=== PATIENT | male | born 1985 | race American Indian/Alaskan Native ===

== ENCOUNTER 2017-11-29 12:54 | Inpatient (IN) | payer OTHER ==
--- NOTE | 2017-11-29 15:39 | Emergency Department Report ---
Blank Doc - Documentation Documentation: Patient presents to the emergency department for chest pain 2 days. Patient states the pain is worse when he leans forward or Flat. He states the pain is located on left side of his chest and radiates to his left shoulder. Patient will be moved to the main ED for further evaluation and workup.
--- NOTE | 2017-11-29 15:47 | XRay Report ---
FINAL REPORT PROCEDURE: XR CHEST ROUTINE 2V TECHNIQUE: PA and lateral chest radiographs were obtained. CPT 30938 HISTORY: sob/cr with deep breath COMPARISON: No prior studies are available for comparison. FINDINGS: Heart: Normal size. Mediastinum/Vessels: Normal. Lungs/Pleural space: Clear. Bony thorax: No acute osseous abnormality. Other: IMPRESSION: Negative examination.
[2017-11-29 17:07] LABS: Basophils % (Auto) 0.3 % (0.0-1.8); Eosinophils # (Auto) 0.1 K/mm3 (0.0-0.4); Eosinophils % (Auto) 1.1 % (0.0-4.3); Hematocrit 37.6 % (35.5-45.6); Lymphocytes # (Auto) 1.3 K/mm3 (1.2-5.4); Lymphocytes % (Auto) 18.9 % (13.4-35.0); Mean Corpuscular HGB Conc 32 % (32-34); Mean Corpuscular Hemoglobin 30 pg (28-32); Mean Corpuscular Volume 93 fl (84-94); Monocytes # (Auto) 0.7 K/mm3 (0.0-0.8); Monocytes % (Auto) 9.5 % (0.0-7.3); Platelet Count 331 K/mm3 (140-440); Red Blood Count 4.04 M/mm3 (3.65-5.03); Red Cell Distribution Width 14.9 % (13.2-15.2)
[2017-11-29 17:09] LABS: INR 0.93 (0.87-1.13)
[2017-11-29 17:10] LABS: Partial Thromboplastin Time 38.3 Sec. (24.2-36.6)
[2017-11-29 17:20] LABS: Alanine Aminotransferase 19 units/L (7-56); Albumin 4.1 g/dL (3.9-5); BUN/Creatinine Ratio 21; Blood Urea Nitrogen 15 mg/dL (9-20); Calcium 9.4 mg/dL (8.4-10.2); Hemolysis Index 3
--- NOTE | 2017-11-29 18:11 | Emergency Department Report ---
ED Chest Pain HPI - General Chief Complaint: Chest Pain Stated Complaint: CHEST PAIN/SOB Time Seen by Provider: 11/29/17 15:06 Source: patient Mode of arrival: Ambulatory Limitations: No Limitations - History of Present Illness Initial Comments: This is a pleasant 32 year-old male who admits to occasional marijuana use who reports that he woke up this morning with shortness of breath and left-sided chest pain. He admits that over the past few days he began to have these symptoms and they have worsened. When asked if he is exerting himself physically he states that he did help somebody move yesterday but the symptoms began before that. He states that it hurts to take a deep breath and positional changes also make the pain worse. He does not have any significant past medical history and is not on any current prescription medications. He denies any alcohol use or nicotine use. MD Complaint: chest pain -: Gradual, days(s) (2) Onset: during rest Pain Location: substernal, left chest Pain Radiation: none Severity: moderate Severity scale (0 -10): 6 Quality: tightness, sharp Consistency: constant Worsens With: inspiration, movement re: denies: nausea, vomting, diaphoresis, dyspnea Other Symptoms: denies: cough, fever Treatments Prior to Arrival: none - Related Data Allergies Allergy/AdvReac Type Severity Reaction Status Date / Time clindamycin Allergy Rash Verified 11/29/17 13:20 Heart Score - HEART Score History: Slightly suspicious EKG: Non-specific Age: < 45 Risk factors: 1-2 risk factors Troponin: < normal limit HEART Score: 2 ED Review of Systems ROS: Stated complaint: CHEST PAIN/SOB Other details as noted in HPI Comment: All other systems reviewed and negative Constitutional: see HPI Eyes: as per HPI ENT: as per HPI Respiratory: see HPI Cardiovascular: as per HPI Endocrine: see HPI Gastrointestinal: as per HPI Genitourinary: as per HPI Musculoskeletal: as per HPI Skin: as per HPI Neurological: as per HPI Psychiatric: as per HPI Hematological/Lymphatic: as per HPI ED Past Medical Hx - Past Medical History Previous Medical History?: No - Surgical History Past Surgical History?: No - Social History Smoking Status: Never Smoker Substance Use Type: Marijuana ED Physical Exam - General Limitations: No Limitations General appearance: in distress (mild) - Head Head exam: Present: atraumatic, normocephalic - Eye Eye exam: Present: normal appearance, PERRL, EOMI - ENT ENT exam: Present: normal exam - Neck Neck exam: Present: normal inspection - Respiratory Respiratory exam: Present: normal lung sounds bilaterally, chest wall tenderness. Absent: respiratory distress, wheezes, rales, rhonchi - Cardiovascular Cardiovascular Exam: Present: regular rate, normal rhythm, normal heart sounds - GI/Abdominal GI/Abdominal exam: Present: soft, normal bowel sounds. Absent: distended, tenderness, guarding, rebound - Extremities Exam Extremities exam: Present: normal inspection, full ROM, normal capillary refill - Back Exam Back exam: Present: normal inspection, full ROM - Neurological Exam Neurological exam: Present: alert, oriented X3, CN II-XII intact - Psychiatric Psychiatric exam: Present: normal affect, normal mood - Skin Skin exam: Present: warm, dry, intact, normal color ED Course Vital Signs 11/29/17 11/29/17 11/29/17 13:16 16:55 16:57 Temperature 98.5 F 98.4 F Pulse Rate 76 72 Respiratory 16 13 13 Rate Blood Pressure 110/66 Blood Pressure 107/71 [Left] O2 Sat by Pulse 100 100 100 Oximetry 11/29/17 18:15 Temperature Pulse Rate 59 L Respiratory 20 Rate Blood Pressure Blood Pressure 106/68 [Left] O2 Sat by Pulse 97 Oximetry - Reevaluation(s) Reevaluation #1: 11/29/17 21:30 I discussed the case with the hospitalist. At this time we will need to go ahead and admit the patient. The patient could have pericarditis. We will get a branch store manager review the EKG. The patient's CT thorax findings also need to be addressed. The patient may benefit from an echocardiogram. Hospitalist to admit patient. ED Medical Decision Making - Lab Data Result diagrams: 11/29/17 16:46 11/29/17 16:46 Critical care attestation.: If time is entered above; I have spent that time in minutes in the direct care of this critically ill patient, excluding procedure time. ED Disposition Clinical Impression: Chest pain Qualifiers: Chest pain type: unspecified Qualified Code(s): R07.9 - Chest pain, unspecified Disposition: -09 OP ADMIT IP TO THIS HOSP Is pt being admited?: Yes Does the pt Need Aspirin: No Condition: Stable Instructions: Chest Pain (ED) Referrals: PRIMARY CARE,MD [Primary Care Provider] - 3-5 Days
[2017-11-29 19:09] LABS: Bilirubin,Urine NEG (Negative); Blood,Urine NEG (Negative); Color,Urine Yellow (Yellow); Mucus,Urine FEW /HPF; Protein,Urine <15 mg/dL mg/dL (Negative)
[2017-11-29 19:31] LABS: Amphetamine Screen,Urine PRESUMPTIVE NEGATIVE; Benzodiazepines Screen,Urine PRESUMPTIVE NEGATIVE; Cocaine Screen,Urine PRESUMPTIVE NEGATIVE; Methadone Screen,Urine PRESUMPTIVE NEGATIVE; Opiate Screen,Urine PRESUMPTIVE NEGATIVE
--- NOTE | 2017-11-29 19:43 | Cat Scan Report ---
FINAL REPORT PROCEDURE: CT ANGIO CHEST TECHNIQUE: Computerized tomographic angiography of the chest was performed during the IV injection of iodinated nonionic contrast including image processing. The image data was postprocessed using 2-dimensional multiplanar reformatted (MPR) and 3-dimensional (MIP and/or volume rendered) techniques. HISTORY: chest pain, shortness of breath COMPARISON: No prior studies are available for comparison. FINDINGS: Pulmonary outflow tract, right and left main pulmonary arteries and their proximal branches: Clear, no filling defects are seen to suggest pulmonary embolus. Pericardium: No evidence of pericardial effusion. Thoracic aorta: No evidence of aneurysmal dilatation or dissection. Coronary arteries: Are unremarkable. Mediastinum and hilar regions: Nonspecific subcentimeter lymph nodes are visualized. No pathologically enlarged lymph nodes or masses are identified. There is a small amount of soft tissue dense material in the anterior mediastinum conforming to the contours of the anterior mediastinum consistent with residual thymic tissue. Lung Temple: There are small patchy alveolar densities in the right and left perihilar region superiorly. Differential would include a small amount of atelectasis, fibrosis or minimal patchy infiltrates. No dense consolidations effusions or discrete masses are seen. Upper abdomen: No acute or focal abnormality is seen. Other: No acute bone abnormalities are visualized. IMPRESSION: No evidence of pulmonary embolus. Minimal patchy alveolar densities right and left upper lobes as described above. No dense consolidations are seen.
[2017-11-29 19:52] LABS: Cannabinoid Screen,Urine PRESUMPTIVE POSITIVE
[2017-11-29] MEDS ORDERED: TORADOL IV ONE (22:07)
[2017-11-29] MEDS ORDERED: TORADOL ONE (22:08)
--- NOTE | 2017-11-29 23:09 | Emergency Department Report ---
ED General Adult HPI - General Chief complaint: Chest Pain Stated complaint: CHEST PAIN/SOB Time Seen by Provider: 11/29/17 15:06 Source: patient Mode of arrival: Ambulatory Limitations: No Limitations - Related Data Allergies Allergy/AdvReac Type Severity Reaction Status Date / Time clindamycin Allergy Rash Verified 11/29/17 13:20 ED Review of Systems ROS: Stated complaint: CHEST PAIN/SOB Other details as noted in HPI ED Past Medical Hx - Past Medical History Previous Medical History?: No - Surgical History Past Surgical History?: No - Social History Smoking Status: Never Smoker Substance Use Type: Marijuana ED Physical Exam - General Limitations: No Limitations ED Course Vital Signs 11/29/17 13:16 Temperature 98.5 F Pulse Rate 76 Respiratory 16 Rate Blood Pressure 110/66 O2 Sat by Pulse 100 Oximetry Critical care attestation.: If time is entered above; I have spent that time in minutes in the direct care of this critically ill patient, excluding procedure time. ED Disposition Condition: Stable Referrals: PRIMARY CARE [Primary Care Provider] - 3-5 Days
[2017-11-29] MEDS ORDERED: NITROSTAT SL PRN (23:13)
[2017-11-29] MEDS ORDERED: MORPHINE IV PRN (23:14)
[2017-11-29] MEDS ORDERED: TYLENOL PO PRN (23:14)
[2017-11-29] MEDS ORDERED: ZOFRAN IV PRN (23:15)
[2017-11-30] MEDS: NITRO-BID 2% TP SCH ×2 (06:25→10:09)
[2017-11-30] MEDS ORDERED: NACL 0.9% 500 ML 500 ML IV ONE (06:41)
[2017-11-30 08:08] LABS: Creatine Kinase MB 3.6 ng/mL (0.0-4.0)
--- NOTE | 2017-11-30 08:24 | History and Physical Report ---
CHIEF COMPLAINT: Chest pain. OTHER COMPLAINT: Shortness of breath. HISTORY OF PRESENT ILLNESS: The patient is 32-year-old male who said he started having sharp chest pain that woke him up in the morning of 11/29/2017. The patient described his pain as sharp that did not radiate but worst with deep breath or certain movements. There was also history of associated shortness of breath but no nausea, no vomiting, and no diaphoresis. The patient is admitted to helping somebody move home furniture. Denied history of cough, fever or chills. PAST MEDICATIONS HISTORY: Unremarkable. FAMILY HISTORY: Noncontributory. SOCIAL HISTORY: The patient smokes marijuana. He does not drink and does not smoke cigarettes. MEDICATIONS: The patient is on no medication at this time. ALLERGIES: THE PATIENT IS ALLERGIC TO CLINDAMYCIN. REVIEW OF SYSTEMS: CONSTITUTIONAL: There is no fever, no chills, no diaphoresis. HEENT: There is no headache or sore throat. CARDIOVASCULAR: Chest pain is present. No orthopnea. RESPIRATORY: There is shortness of breath. No cough. GASTROINTESTINAL SYSTEM: There is no nausea, no vomiting, no abdominal pain, diarrhea or constipation. NEUROLOGIC: There is no numbness, no dizziness, no altered mental status. MUSCULOSKELETAL: There is no joint pain or swelling. DERMATOLOGICAL SYSTEM: There is no skin rash or itching. GENITOURINARY: There are no dysuria, hematuria or flank pain. Rest of system review is normal. PHYSICAL EXAMINATION: GENERAL: At the time of exam, the patient was found to be alert, oriented x 3 and not in acute distress. VITAL SIGNS: There is normal temperature with pulse of 64, respiration 25, blood pressure 120/81, O2 sat of 98% on room air. HEENT: Exam showed pupils to be equal, round, reactive to light and accommodation. Extraocular muscles are intact. NECK: Supple with no JVD or carotid bruit. CARDIOVASCULAR: Showed normal first heart and second heart sounds, with no gallops or murmurs. RESPIRATORY: Showed good air entry on both sides of the lung with no abnormal breath sounds. GASTROINTESTINAL: Showed abdomen to be full, soft, nontender with no organomegaly or rigidity. NEUROLOGIC: Exam shows no focal deficit. RESPIRATORY SYSTEM: Showed no joint swelling or tenderness. DERMATOLOGICAL: Showing no skin rash. GENITOURINARY: Showing no costovertebral angle tenderness. PERTINENT LABORATORY DATA AND IMAGING STUDIES: The patient has angiogram of the chest done that shows no evidence of pulmonary embolism. There is minimal patchy alveolar density, right and left upper lobe with no dense consolidation seen. The patient also had chest x-ray done that shows no acute cardiopulmonary lesion. DIAGNOSES: 1. Chest pain. 2. Marijuana abuse. PLAN: The patient will be admitted to medical floor on telemetry. We will have cardiac enzymes involving troponin, total CK, CK-MB checked q. 6 hours x 2 more levels. The patient will remain n.p.o. for Lexiscan stress in the morning and will be on aspirin 325 mg by mouth daily. DVT prophylaxis will be through heparin 5000 units subQ q. 12 hours. The patient will be on IV morphine 2 mg every 5 minutes as needed for pain and will be on nitro paste half inch to the anterior chest wall q.i.d. as well as nitroglycerin 0.4 mg sublingual every 5 minutes as needed for chest pain. The patient will be on IV Zofran 4 mg every 8 hours as needed for nausea and vomiting and will be on oxygen via nasal cannula at 2 liters per minute. The patient will also be on Tylenol 650 mg by mouth every 4 hours for fever, headache and will remain n.p.o. for stress test this morning. JOB# [id number] OCN/NTS
[2017-11-30] MEDS ORDERED: HEPARIN SUB-Q SCH (10:00)
[2017-11-30] MEDS ORDERED: ASPIRIN PO SCH (10:00)
[2017-11-30 11:57] VITALS: BP 114/78
--- NOTE | 2017-11-30 12:38 | Discharge Summary ---
Providers - Providers Date of Admission: 11/29/17 22:57 Attending physician: ADRIAN GODINEZ MD Primary care physician: ENVIRONMENTAL PERMITTING SPECIALIST Hospitalization Reason for admission: chest Condition: Stable Hospital course: Patient is a 32-year-old male who presented to the hospital complaining of chest pain which is left sided radiating to the sternum area from the flank up. Has been ongoing for 2 days prior to presentation to the hospital. He also had an upper respiratory infection about 3 weeks prior to this incident. However the hospital admission with chest pain protocol with morphine and aspirin. His chest pain has consistently improved and resolved completely. It was pleuritic in nature on admission patient had a CTA which was negative for pulmonary embolism that was concerning for pulmonary nodule which the patient has been advised about. Although on my review this a small patchy infiltrates on the left and right upper lobes. Advised the patient about quitting tobacco use of some use patient verbalized understanding, he is accompanied by family. Patient was advised about 5 intake and oral hydration. Along the hospital. Atypical chest pain likely cellulitis from recent upper infection Marijuana use disorder Mild rhabdomyolysis Disposition: DC-01 TO HOME OR SELFCARE Time spent for discharge: 35 mins Core Measure Documentation - Palliative Care Palliative Care/ Comfort Measures: Not Applicable - Core Measures Any of the following diagnoses?: none - VTE Discharge Requirements Deep Vein Thrombosis/Pulmonary Embolism Present on Admission: No Exam - Physical Exam Narrative exam: VITAL SIGNS: Reviewed. GENERAL: The patient appeared well nourished and normally developed. Vital signs as documented. HEAD: No signs of head trauma. EYES: Pupils are equal. Extraocular motions intact. EARS: Hearing grossly intact. MOUTH: Oropharynx is normal. NECK: No adenopathy, no JVD. CHEST: Chest with clear breath sounds bilaterally. No wheezes, rales, or rhonchi. CARDIAC: Regular rate and rhythm. S1 and S2, without murmurs, gallops, or rubs. VASCULAR: No Edema. Peripheral pulses normal and equal in all extremities. ABDOMEN: Soft, without detectable tenderness. No sign of distention. No rebound or guarding, and no masses palpated. Bowel Sounds normal. MUSCULOSKELETAL: Good range of motion of all major joints. Extremities without clubbing, cyanosis or edema. NEUROLOGIC EXAM: Alert and oriented x 3. No focal sensory or strength deficits. Speech normal. Follows commands. PSYCHIATRIC: Mood normal. SKIN: No rash or lesions. - Constitutional Vitals: Temp Pulse Resp BP Pulse Ox 97.7 F 87 18 114/78 100 11/30/17 11:56 11/30/17 11:56 11/30/17 11:56 11/30/17 11:56 11/30/17 11:56 Plan Activity: advance as tolerated, fall precautions Diet: low fat Special Instructions: smoking cessation Follow up with: PRIMARY CARE, [Primary Care Provider] - 3-5 Days
--- NOTE | 2017-12-01 02:05 | Treadmill Report ---
ORDERING PHYSICIAN: Nessa Simeon MD FINDINGS: There is no scintigraphic evidence of myocardial ischemia. The left ventricle is normal in size and systolic function. The left ventricular ejection fraction is measured at 55%. Normal wall motion and wall thickening is noted on gated imaging. CONCLUSION: Normal perfusion scan. JOB# [id number] AKKrystina/NTS
== END 2017-11-30 14:43 | disposition home or self-care (01) | DRG 603 ==
LOC: ED 12:54 → 4A 22:57
PROVIDERS: ADMIT Internal Medicine; ATTEND Internal Medicine
DX: L03.818 Cellulitis of other sites (principal); M62.82 Rhabdomyolysis; F12.10 Cannabis abuse, uncomplicated; Z88.0 Allergy status to penicillin
CPT/HCPCS: 36415; 71046; 71275; 78452; 80053; 80307; 81001; 82550; 82553; 83880; 84484; 85025; 85379; 85610; 85652; 85730; 86140; 93005; 93010; 93017; 96374; A9502; J1885; J7040; Q9967